=== PATIENT | female | born 1970 | race Caucasian/White ===

== ENCOUNTER 2016-10-14 23:45 | Emergency (ER) | payer SELFPAY ==
[~2016-10-14] VITALS: Ht 157.5 cm; Wt 73.9 kg
[2016-10-15 00:09] VITALS: BP 111/69
--- NOTE | 2016-10-15 00:24 | NUR ---
PT TAKEN TO BED 6
--- NOTE | 2016-10-15 00:25 | NUR ---
Dr. Guillaume evaluating patient at bedside.
[2016-10-15] MEDS ORDERED: NACL 0.9% 1,000 ML IV ONE (00:35)
[2016-10-15] MEDS ORDERED: METOCLOPRAMIDE 10 MG/2 ML INJ VIAL IVP ONE (00:35)
--- NOTE | 2016-10-15 00:57 | NUR ---
PATIENT PRESENTS TO ED WITH HEADACHE AND DIZZYNESS [id number] . PT STATES SHE IS NOW BEGINNING TO EXPERIENCE CP . DENIES N/V/D; SKIN IS PINK/WARM/DRY; AAOX4 WITH EVEN AND STEADY GAIT; LUNGS CLEAR BL; HR EVEN AND REGULAR; PT DENIES ANY FEVER, CP, SOB, OR COUGH AT THIS TIME; PATIENT STATES PAIN OF 10/10 AT THIS TIME; VSS; PATIENT POSITIONED FOR COMFORT; HOB ELEVATED; BEDRAILS UP X2; BED DOWN. ER MD MADE AWARE OF PT STATUS. AT BEDSIDE
--- NOTE | 2016-10-15 02:10 | NUR ---
Patient appears to be resting comfortably in bed. Vital Signs within normal limits. Respirations even and unlabored. AT SIDE
[2016-10-15] MEDS ORDERED: POTASSIUM CHLORIDE 10 MEQ TABER PO ONE (03:00)
[2016-10-15 03:57] VITALS: BP 118/75
--- NOTE | 2016-10-15 03:57 | NUR ---
Patient discharged with v/s stable. Written and verbal after care instructions given and explained. Patient alert, oriented and verbalized understanding of instructions. Ambulatory with steady gait. All questions addressed prior to discharge. ID band removed. Patient advised to follow up with PMD. Rx of REGLAN AND MECLIZINE HYDROCHLORIDE given. Patient educated on indication of medication including possible reaction and side effects. Opportunity to ask questions provided and answered.
== END 2016-10-15 03:57 | disposition home or self-care (01) ==
LOC: MED 23:45
DX: G44.209 Tension-type headache, unspecified, not intractable (principal); R42 Dizziness and giddiness; D50.9 Iron deficiency anemia, unspecified; E87.6 Hypokalemia; F17.220 Nicotine dependence, chewing tobacco, uncomplicated
CPT/HCPCS: 36415; 70450; 71010; 80053; 81001; 81025; 83880; 84484; 85025; 85610; 85730; 93005; 96361; 96374; 99285; J2765; J7030; Q0092